=== PATIENT | female | born 1980 | race Caucasian/White ===

== ENCOUNTER 2018-01-08 10:26 | Emergency (ER) | payer BC ==
[2018-01-08 10:27] VITALS: BMI 33.3
[2018-01-08 10:33] VITALS: RESP 18; O2SAT 100
[2018-01-08] MEDS ORDERED: Lidocaine 2% Jelly (Uro-Jet) ONE (11:03)
--- NOTE | 2018-01-08 11:11 | C.PDOC ---
History Of Present Illness 37-YEAR-OLD FEMALE, PRESENTS TO THE EMERGENCY DEPARTMENT WITH CO RECTAL PAIN X 7 DAYS. HO HEMORRHOIDS BUT CURRENT PAIN "NOT LIKE PRIOR TIMES". BM WNL. NO GI BLEED, PUS DC, FEVER. HO PRIOR HEMORRHOIDECTOMY. NO OTHER ASSOC SX EXAM NAD NONTOXIC ABD NEG RECTAL +HEMORRHOIDS NONENGORGED, NONTEND, NO BLEEDING. NO GROSS PERIRECTAL ABSCESS. BROWN STOOL REMAINDER NEG Time Seen by Provider: 01/08/18 10:48 Chief Complaint (Nursing): GI Problem History Per: Patient History/Exam Limitations: no limitations Past Medical History Reviewed: Historical Data, Nursing Documentation, Vital Signs Vital Signs: Last Vital Signs Temp 98.3 F 01/08/18 13:35 Pulse 60 01/08/18 13:35 Resp 18 01/08/18 13:35 BP 101/64 01/08/18 13:35 Pulse Ox 100 01/08/18 13:35 - Medical History PMH: Asthma Family History: States: No Known Family Hx - Social History Hx Tobacco Use: No Hx Alcohol Use: No Hx Substance Use: No - Immunization History Hx Tetanus Toxoid Vaccination: Yes Hx Influenza Vaccination: No Hx Pneumococcal Vaccination: No Review Of Systems Constitutional: Negative for: Fever Gastrointestinal: Positive for: Rectal Pain. Negative for: Vomiting, Abdominal Pain Physical Exam - Physical Exam Appears: Non-toxic, No Acute Distress Skin: Normal Color, Warm, Dry, No Rash Head: Normacephalic Eye(s): bilateral: PERRL Nose: Normal Oral Mucosa: Moist Lips: Normal Appearing Neck: Normal ROM Cardiovascular: Rhythm Regular, No Murmur Respiratory: Normal Breath Sounds, No Accessory Muscle Use Gastrointestinal/Abdominal: Soft, No Tenderness Rectal: Other (+HEMORRHOIDS NONENGORGED, NONTEND, NO BLEEDING. NO GROSS PERIRECTAL ABSCESS. BROWN STOOL) Neurological/Psych: Oriented x3, Normal Speech ED Course And Treatment - Laboratory Results Result Diagrams: 01/08/18 11:34 01/08/18 11:34 O2 Sat by Pulse Oximetry: 100 Disposition Counseled Patient/Family Regarding: Studies Performed, Diagnosis, Need For Followup - Disposition Referrals: Sunday Seo MD [Staff Provider] - Frank Vidal MD [Staff Provider] - Disposition: HOME/ ROUTINE Disposition Time: 13:41 Condition: GOOD Instructions: Hemorrhoids (DC) Forms: [employer] (Palestinian) - Clinical Impression Clinical Impression: Rectal pain - Scribe Statement The provider has reviewed the documentation as recorded by the Scribe (Lloyd An) All medical record entries made by the Scribe were at my direction and personally dictated by me. I have reviewed the chart and agree that the record accurately reflects my personal performance of the history, physical exam, medical decision making, and the department course for this patient. I have also personally directed, reviewed, and agree with the discharge instructions and disposition.
[2018-01-08 11:38] LABS: BASO % 0.6 % (0.0-2.0); EOS # 0.1 K/uL (0.0-0.7); EOS % 2.5 % (0.0-4.0); HEMOGLOBIN 12.8 g/dL (11.0-16.0); LYMPH # 1.4 K/uL (1.0-4.3); LYMPH % 43.9 % (20.0-40.0); MEAN CELL VOLUME 81.2 fL (81.0-99.0); MEAN CORPUSCULAR HEMOGLOBIN 27.5 pg (27.0-31.0); MEAN CORPUSCULAR HGB CONC 33.9 g/dL (33.0-37.0); MEAN PLATELET VOLUME 8.6 fL (7.2-11.7); MONO # 0.2 K/uL (0.0-0.8); NEUT # 1.5 K/uL (1.8-7.0); NRBC % 0.1 % (0.0-2.0); RBC 4.65 Mil/uL (3.80-5.20); RED CELL DISTRIBUTION WIDTH 15.5 % (11.5-14.5); WHITE BLOOD COUNT 3.3 K/uL (4.8-10.8)
[2018-01-08 12:01] LABS: BLOOD UREA NITROGEN 9 mg/dL (7-17); CALCIUM 9.1 mg/dl (8.6-10.4); GFR AFRICAN-AMERICAN > 60; GFR NON-AFRICAN AMERICAN > 60
[2018-01-08] MEDS ORDERED: Iohexol 300 100 ML IJ ONE (12:13)
[2018-01-08 13:35] VITALS: BP 101/64; PULSE 60; TEMP 98.3
--- NOTE | 2018-01-08 13:35 | CT ---
PROCEDURE: CT Pelvis with contrast HISTORY: RECTAL PAIN RO ABSCESS COMPARISON: None. TECHNIQUE: Contiguous axial images of the pelvis with contrast. Coronal and sagittal reformats generated. Contrast dose: 100 cc Omnipaque 300 contrast material Radiation dose: Total exam DLP = 1037.93 mGy-cm. This CT exam was performed using one or more of the following dose reduction techniques: Automated exposure control, adjustment of the mA and/or kV according to patient size, and/or use of iterative reconstruction technique. FINDINGS: BLADDER: Urinary bladder incompletely distended which presumably accounts for thick-walled appearance however correlation with urinalysis to exclude the possibility of cystitis. The the the REPRODUCTIVE ORGANS: Uterus unremarkable. . There is a small involuting left adnexal cyst measuring approximately 2.4 x 2.3 cm Probable small right adnexal cyst measuring approximately 1.6 x 1.0 cm. . Questionable tiny amount of fluid abutting the posterior margin of right ovary and right posterolateral margin of the uterus. VISUALIZED BOWEL: Radiopaque sutures seen along the inner wall the rectum likely related to prior hemorrhoid surgery however clinical correlation recommended. . There is also some minor asymmetric thickening of the left lateral wall of the rectum which could be due to surgery as well. Clinical correlation recommended. Followup up proctoscopy at could be performed for further evaluation if indicated. No evidence of perirectal, perianal or perineal abscess seen. PERITONEUM: Unremarkable, as visualized. No free fluid. No free air. Small fat containing umbilical hernia. LYMPH NODES: Unremarkable. No enlarged lymph nodes. VASCULATURE: Unremarkable. BONES: No fracture or focal lesion. OTHER FINDINGS: No other significant findings IMPRESSION: Small involuting left adnexal cyst and at tiny of right adnexal cyst with questionable small amount of free fluid in the cul de sac region. Findings most consistent with prior hemorrhoidectomy bulla and/or banding. Slight asymmetric wall thickening of the left lateral margin of the rectum possibly due to prior surgery and/or residual and/or recurrent hemorrhoids. Followup proctoscopy may be prudent. No evidence of perirectal, perianal or perineal abscess fluid collections
== END 2018-01-08 14:00 | disposition home or self-care (01) ==
LOC: C.ER 10:26
DX: K62.89 Other specified diseases of anus and rectum (principal)
CPT/HCPCS: 72193; 80048; 85025; 96374; 99284; J1885; Q9967

== ENCOUNTER 2018-09-21 17:28 | Emergency (ER) | payer BC ==
[2018-09-21 17:28] VITALS: BMI 33.3
[2018-09-21 17:37] VITALS: BP 122/70; PULSE 80; RESP 18; TEMP 98.6; O2SAT 99
--- NOTE | 2018-09-21 17:57 | C.PDOC ---
History Of Present Illness 38 y/o female with PMH of asthma presents to the ED c/o sinus congestion, bodyaches, and mild frontal headache starting today. Pt states her son had a positive flu test 5 days ago, and thinks she may be getting sick as well. Associated sore throat and intermittent tactile fever. States she received the flu vaccine. Pt works here in the ED in registration. Denies chills, abdominal pain, V/D, cough, headache, neck pain, dizziness, urinary symptoms, chest pain, SOB, or any other associated complaints. Time Seen by Provider: 09/21/18 17:40 Chief Complaint (Nursing): Cough, Cold, Congestion History Per: Patient History/Exam Limitations: no limitations Onset/Duration Of Symptoms: Hrs Associated Symptoms: Chills, Sore Throat, Cough, Myalgias, Nasal Congestion, Nausea Past Medical History Reviewed: Historical Data, Nursing Documentation, Vital Signs Vital Signs: Last Vital Signs Temp 98.6 F 09/21/18 17:36 Pulse 80 09/21/18 17:36 Resp 18 09/21/18 17:36 BP 122/70 09/21/18 17:36 Pulse Ox 99 09/21/18 17:36 - Medical History PMH: Asthma Family History: States: Unknown Family Hx - Social History Hx Tobacco Use: No Hx Alcohol Use: No Hx Substance Use: No - Immunization History Hx Tetanus Toxoid Vaccination: Yes Hx Influenza Vaccination: No Hx Pneumococcal Vaccination: No Review Of Systems Except As Marked, All Systems Reviewed And Found Negative. Constitutional: Positive for: Fever (tactile), Chills, Malaise Eyes: Negative for: Vision Change ENT: Positive for: Nose Congestion, Throat Pain. Negative for: Ear Pain Cardiovascular: Negative for: Chest Pain, Palpitations, Light Headedness Respiratory: Positive for: Cough, Sputum. Negative for: Shortness of Breath Gastrointestinal: Positive for: Nausea. Negative for: Vomiting, Abdominal Pain Genitourinary: Negative for: Dysuria, Frequency, Vaginal Discharge, Vaginal Bleeding Musculoskeletal: Positive for: Other (myalgias). Negative for: Neck Pain, Back Pain Skin: Negative for: Rash Neurological: Positive for: Headache. Negative for: Weakness, Numbness, Dizziness Physical Exam - Physical Exam Appears: Well, Non-toxic, No Acute Distress Skin: Normal Color, Warm, Dry Head: Atraumatic, Normacephalic Eye(s): bilateral: Normal Inspection, PERRL, EOMI Ear(s): Bilateral: Normal Nose: Normal Oral Mucosa: Moist Throat: Normal Neck: Normal, Normal ROM, No Midline Cervical Tenderness, No Paracervical Tenderness, Supple, No Other (no meningeal signs) Lymphatic: Normal Exam Cardiovascular: Rhythm Regular Respiratory: Normal Breath Sounds Gastrointestinal/Abdominal: Soft, No Tenderness Back: Normal Inspection, No CVA Tenderness, No Vertebral Tenderness, No Paraspinal Tenderness Extremity: Normal ROM, Capillary Refill (<2s) Extremity: Bilateral: Atraumatic, No Pedal Edema, Normal Color And Temperature, Normal ROM Pulses: Left Radial: Normal, Right Radial: Normal Neurological/Psych: Oriented x3, Normal Speech, Normal Motor, Normal Sensation Gait: Steady ED Course And Treatment O2 Sat by Pulse Oximetry: 99 Medical Decision Making Medical Decision Making: Initial Plan: * Rapid strep * Rapid flu Rapid Flu: negative Rapid Strep: negative Will treat with Tamiflu secondary to close sick contact with positive flu and similar symptoms. Diagnostic testing results and plan of care discussed with patient. Strict instructions given regarding prescription use, importance of followup, and signs/symptoms to return to ER including neck pain/stiffness, abdominal pain, N/V, chest pain, SOB, or any other new/worsening symptoms. Pt verbalized understanding of discussion. Patient is A&Ox3, ambulating with steady gait, with vital signs stable for discharge. Disposition - Disposition Referrals: [facility] [Outside] Disposition: HOME/ ROUTINE Disposition Time: 19:00 Condition: GOOD Additional Instructions: Tamiflu every 12 hours for 5 days, 9 more doses Ibuprofen/tylenol for pain Followup with primary doctor within 2 days Return to ER with any new/worsening symptoms Prescriptions: Oseltamivir Cap [Tamiflu] 75 mg PO Q12H #9 cap Instructions: Influenza (ED) Forms: General Discharge Instructions, [facility] (Maltese) - Clinical Impression Clinical Impression: Influenza-like illness
[2018-09-21 18:17] LABS: INFLUENZA A B NEGATIVE FOR FLU A/B (NEGATIVE)
== END 2018-09-21 19:17 | disposition home or self-care (01) ==
LOC: C.ER 17:28
DX: J11.1 Influenza due to unidentified influenza virus with other respiratory manifestations (principal)